=== PATIENT | female | born 1995 | race African-American/Black ===

== ENCOUNTER 2019-10-15 02:49 | Inpatient (IN) | payer BC ==
[~2019-10-15] VITALS: Ht 167.6 cm; Wt 85.9 kg
[2019-10-15] VITALS (33 sets, daily range): BP systolic 105–148; BP diastolic 58–92; PULSE 69–96; TEMP 97.9–99.1
[~2019-10-15 02:49] MED LIST: AMOXICILLIN 50500 MG PO; ATIVAN 0.50.5 MG/TAB PO; BIRTH CONTROL PILLS; BIRTHCONTROL PATCH; CILOXAN .3% EY2.5 ML OS; PEPCID 20MG TAB20 MG PO; TRI-SPRINTEC 281 TAB
--- NOTE | 2019-10-15 03:10 | NUR ---
Patient ambulatory to unit accompanied by spouse for complaint of contractions since 1800. Patient denies any recent travel or fever, cough or sickness. Patient states baby has been active, denies any leaking of fluid or vaginal bleeding. FHR and contraction monitors placed and explained. VS taken and patient ana through BP. SVE 5-6/90/-2, bulgy bag of madsen felt on exam. Assessment completed. Dr. Coe at nurses station, reviews records, report of Vital signs, FHR and contraction pattern reviewed on monitor. Admission orders received.
[2019-10-15 03:50] LABS: BASO # 0.1 (0.0-0.2); BASO % 0.5 % (0.0-2.0); EOS # 0.1 (0.0-0.7); EOS % 0.7 % (0-4.0); GRAN # 9.5 (1.4-6.5); GRAN % 61.7 % (42.2-75.2); LYMPH # 4.4 (1.2-3.4); LYMPH % 28.4 % (20.0-51.0); MEAN CELL VOLUME 91 fl (80.0-100.0); MEAN CORPUSCULAR HEMOGLOBIN 31 pg (27.0-31.0); MEAN CORPUSCULAR HGB CONC 34 g/dl (33.0-37.0); MEAN PLATELET VOLUME 11.2 fl (7.4-10.4); MONO # 1.2 (0.1-0.6); MONO % 7.7 % (1.7-9.3); PLATELET COUNT 260 K/mm3 (130-400); RED BLOOD COUNT 3.61 M/mm3 (4.10-5.30); REDCELL DISTRIBUTION WIDTH-CV 12.5 % (11.5-14.5)
[2019-10-15 03:55] LABS: HEMATOCRIT 32.8 % (37.0-47.0)
[2019-10-15 04:05] LABS: TRICYCLIC ANTIDEPRESS URINE NEGATIVE
--- NOTE | 2019-10-15 04:30 | NUR ---
0415: Patient requesting an epidural. LR bolus infusing. Andrei Orourke CRNA called and notified of patient request. 0425: Patient off monitors and up to bathroom to void then back to bed. Bedside report to Andrei Andrews RN who assumes care of patient at this time.
--- NOTE | 2019-10-15 06:15 | NUR ---
Report from Kalpana BERMUDEZ to assume care of patient.
--- NOTE | 2019-10-15 06:25 | NUR ---
Patient comfortable with epidural. SVE 7-8//-1, BBOW noted. Sidhu catheter placed, scant amount of pink tinged urine returned. Patient denies questions or needs at this time. Repositioned to left tilt, HOB elevated. Call light within reach.
--- NOTE | 2019-10-15 08:05 | NUR ---
to bedside. AROM at 0803, large amount of clear fluid noted. SVE AL/100/+1. Patient repositioned to right tilt, HOB elevated. Pericare performed. Patient encouraged to call with rectal pressure or urge to push. Call light within reach.
--- NOTE | 2019-10-15 08:30 | NUR ---
0830: Sidhu catheter removed, 150ml clear yellow urine noted. SVE unchanged from providers previous exam. Patient repositioned to alisia position, will continue to monitor.
--- NOTE | 2019-10-15 10:00 | NUR ---
0900: RN to bedside to recheck SVE. 09: SVE Complete/+2. Practice push. Patient becomes nauseated after two pushes, requests Zofran. See eMAR. 0910: Pushing resumed. This RN remains at bedside. on unit. 924: requested at bedside for delivery. 31: Nursery nurse requested at bedside for delivery. 37: Spontaneous vaginal delivery of viable male infant assisted by . to abdomen, care of assumed by Turner BERMUDEZ at this time. 42: Spontaneous vaginal delivery of placenta assisted by . Pitocin infusing at 333ml/hr per protocol. Fundus firm at D2, scant lochia noted. 2nd degree perineal laceration, right labial laceration, and left vaginal wall laceration repaired by using 2-[address]-1 and 3-0 Vicryl SH. 1000: Recovery period started. Fundus firm, lochia WNL.
--- NOTE | 2019-10-16 07:00 | NUR ---
Rests in bed, alert. Eating breakfast.
[2019-10-16 08:00] VITALS: BP 134/70; PULSE 78; TEMP 98
[2019-10-16] MEDS ORDERED: IBU600 MG PO (08:56)
--- NOTE | 2019-10-16 09:16 | NUR ---
SHAUN received a social worker assistant consult for the patient due to history of marijuana use. The patient had a negative UDS at admission. The patient tested positive for cannabinoid during on 04/17/2019. Per patient's chart she has a history of anxiety. Per patient's nurse she has no concerns and the patient and baby will discharge this day. SHAUN met with the patient and the patient's Cornelius. This is the patient's first child. The patient states she has all the supplies she needs. SHAUN addressed the patient's anxiety. She states she used to be on Zoloft but stopped taking it when she found out she was . SHAUN addressed the marijuana use. The patient states she stopped as soon as she found out she was and she was not an addict. SHAUN provided the patient with the [facility] Resource Guide and other local resources. SHAUN addressed all questions. A CPS report made due to positive UDS in early . Report # [id number]. SHAUN collaborated the above information with the patient's nurse.
--- NOTE | 2019-10-16 16:00 | NUR ---
Rests in bed, alert. Watches educational d.v.d. 7155 Discharge instructions given, verbalizes understanding.
--- NOTE | 2019-10-18 10:18 | NUR ---
The patient's baby cord blood results were negative.
== END 2019-10-16 16:55 | disposition home or self-care (01) | DRG 807 ==
LOC: LDRO 02:49 → LDR 03:16 → OB 03:16 → LDR 12:42 → OB 12:50
PROVIDERS: ADMIT Obstetrics & Gynecology
PROC: 10E0XZZ Delivery of Products of Conception, External Approach (ICD-10-PCS; principal; 2019-10-15)
PROC: 0KQM0ZZ Repair Perineum Muscle, Open Approach (ICD-10-PCS; 2019-10-15)
DX: O99.344 Other mental disorders complicating childbirth (principal); Z37.0 Single live birth; F41.9 Anxiety disorder, unspecified; O99.334 Smoking (tobacco) complicating childbirth; F17.210 Nicotine dependence, cigarettes, uncomplicated; O70.1 Second degree perineal laceration during delivery; Z3A.38 38 weeks gestation of pregnancy
CPT/HCPCS: J2405; J2590; J2795; J7120